=== PATIENT | female | born 1960 | race Caucasian/White ===

== ENCOUNTER → 2019-11-02 | Outpatient (CLI) | payer SELFPAY | LOC: ZCOL.LAB 11:23 | DX: Z20.828 Contact with and (suspected) exposure to other viral communicable diseases (principal) ==

== ENCOUNTER → 2020-03-06 | Outpatient (REF) | LOC: COL.ER 16:42 | DX: Z20.822 Contact with and (suspected) exposure to COVID-19 (principal) ==

== ENCOUNTER 2020-05-31 10:12 | Emergency (ER) | payer OTHER ==
[~2020-05-31] VITALS: Ht 162.6 cm; Wt 67.3 kg
[2020-05-31 10:17] VITALS: BP 130/80; TEMP 97.8
[2020-05-31 11:55] VITALS: PULSE 84
== END 2020-05-31 11:55 | disposition home or self-care (01) ==
LOC: COL.ER 10:12
DX: S80.01XA Contusion of right knee, initial encounter (principal); Z87.891 Personal history of nicotine dependence; Z88.0 Allergy status to penicillin; W01.0XXA Fall on same level from slipping, tripping and stumbling without subsequent striking against object, initial encounter; Y93.01 Activity, walking, marching and hiking; Y99.0 Civilian activity done for income or pay

== ENCOUNTER 2020-06-12 14:29 | Outpatient (RCR) | payer OTHER | END 2020-08-30 | disposition home or self-care (01) | LOC: WSOH | DX: S80.01XA Contusion of right knee, initial encounter (principal); M17.11 Unilateral primary osteoarthritis, right knee; K21.9 Gastro-esophageal reflux disease without esophagitis; M85.80 Other specified disorders of bone density and structure, unspecified site; Z98.1 Arthrodesis status; Y99.0 Civilian activity done for income or pay; Z90.89 Acquired absence of other organs; Z87.891 Personal history of nicotine dependence ==

== ENCOUNTER → 2020-08-19 | Outpatient (REF) ==
[~2020-08-19] MED LIST: CLEOCIN HC150 MG/CAP PO; PRILOSEC 20MG20 MG PO
== END ==
LOC: COL.LAB 07:40
DX: Z20.822 Contact with and (suspected) exposure to COVID-19 (principal)

== ENCOUNTER 2020-12-01 09:56 | Outpatient (CLI) | payer OTHER ==
[~2020-12-01] VITALS: Ht 162.6 cm; Wt 68.0 kg
[2020-12-01] VITALS (7 sets, daily range): BP systolic 136–149; BP diastolic 73–104; PULSE 90–102; TEMP 98.9–100.7
[2020-12-01] MEDS ORDERED: CLEOCIN HC150 MG/CAP PO (10:13)
[2020-12-01] MEDS ORDERED: PRILOSEC 20MG20 MG PO (10:13)
--- NOTE | 2020-12-01 11:45 | NUR ---
Pt tolerated infusion without issue. She is escorted out to ED entrance following 1 hr observation time. INT was DC'd with catheter intact.
== END 2020-12-01 11:47 | disposition home or self-care (01) ==
LOC: EUO 09:56
DX: U07.1 COVID-19 (principal); J98.4 Other disorders of lung
CPT/HCPCS: Q0244

== ENCOUNTER 2021-03-07 14:23 | Emergency (ER) | payer OTHER ==
[~2021-03-07] VITALS: Ht 170.2 cm; Wt 70.5 kg
[2021-03-07 14:54] VITALS: TEMP 98
[2021-03-07 15:02] LABS: BASO % 0.6 % (0.0-2.0); EOS # 0.1 K/mm3 (0.0-0.7); EOS % 0.8 % (0.0-4.0); GRAN # 3.7 K/mm3 (1.4-6.5); GRAN % 51.7 % (42.2-75.2); HEMATOCRIT 41.1 % (37.0-47.0); HEMOGLOBIN 13.8 g/dl (12.5-16.0); LYMPH # 2.8 K/mm3 (1.2-3.4); LYMPH % 38.4 % (20.0-51.0); MEAN CELL VOLUME 97 fl (80.0-100.0); MEAN CORPUSCULAR HEMOGLOBIN 33 pg (27-31); MEAN CORPUSCULAR HGB CONC 34 g/dl (33.0-37.0); MEAN PLATELET VOLUME 9.9 fl (7.4-10.4); MONO # 0.6 K/mm3 (0.1-0.6); MONO % 8.4 % (1.7-9.3); PLATELET COUNT 311 K/mm3 (130-400); RED BLOOD COUNT 4.23 M/mm3 (4.10-5.30)
[2021-03-07 15:22] LABS: ALBUMIN 4.1 gm/dL (3.4-4.8); BILIRUBIN,TOTAL 0.8 mg/dL (0.2-1.2); CALCIUM 9.7 mg/dL (8.4-10.2); CREATININE, serum 0.71 mg/dL (0.57-1.11); POTASSIUM 3.7 mmol/L (3.5-4.5); TOTAL PROTEIN 7.8 gm/dL (6.2-8.1)
[2021-03-07] MEDS ORDERED: CIPRO 500MG TA500 MG PO (16:33)
[2021-03-07] MEDS ORDERED: FLAGYL500 MG PO (16:33)
[2021-03-07 17:37] LABS: COLLECTION METHOD CLEAN CATCH
[2021-03-07 17:47] LABS: PH 6 (5-8); URINE APPEARANCE Clear (CLEAR/HAZY); URINE BACTERIA Rare /hpf (NONE SEEN); URINE BILIRUBIN Negative (NEGATIVE); URINE BLOOD Negative (NEGATIVE); URINE COLOR Yellow (YELLOW); URINE GLUCOSE Negative (NEGATIVE); URINE KETONE 1+ (NEGATIVE); URINE LEUKOCYTE ESTERASE 1+ (NEGATIVE); URINE NITRATE Negative (NEGATIVE); URINE PROTEIN(semi-quant) Negative (NEGATIVE); URINE UROBILINOGEN Negative (NEGATIVE)
[2021-03-07 18:23] VITALS: BP 132/78; PULSE 73
== END 2021-03-07 18:23 | disposition home or self-care (01) ==
LOC: COL.ER 14:23
PROVIDERS: Emergency Medicine
DX: K57.92 Diverticulitis of intestine, part unspecified, without perforation or abscess without bleeding (principal); K21.9 Gastro-esophageal reflux disease without esophagitis; Z88.0 Allergy status to penicillin; Z79.899 Other long term (current) drug therapy
CPT/HCPCS: J1885; J1956; J2405; J7030; Q9967

== ENCOUNTER 2021-09-29 15:02 | Emergency (ER) | payer OTHER ==
[~2021-09-29] VITALS: Ht 160 cm; Wt 65.9 kg
[~2021-09-29 15:02] MED LIST changes: +CIPRO 500MG TA500 MG PO; +FLAGYL500 MG PO
[2021-09-29 15:07] VITALS: TEMP 98
[2021-09-29 16:40] VITALS: BP 146/93; PULSE 97
== END 2021-09-29 16:40 | disposition home or self-care (01) ==
LOC: COL.ER 15:02
DX: T78.3XXA Angioneurotic edema, initial encounter (principal); Z28.310 Unvaccinated for COVID-19
CPT/HCPCS: J7030